=== PATIENT | female | born 1990 | race African-American/Black ===

== ENCOUNTER 2021-05-07 13:17 | Emergency (ER) | payer MEDICAID ==
[~2021-05-07] VITALS: Ht 157.5 cm; Wt 79.0 kg
[2021-05-07] MEDS ORDERED: IBUPROFEN 600MG TABLET PO STA (13:32)
[2021-05-07] MEDS ORDERED: ALBUTEROL 6.7GM HFA INHALER ORI ONE (13:45)
[2021-05-07] MEDS ORDERED: SODIUM CHLORIDE 0.9% 1000ML BAG (SEPSIS BOLUS) IV NR (15:30)
[2021-05-07] MEDS ORDERED: ACETAMINOPHEN 325MG TABLET PO NR (15:30)
[2021-05-07 16:00] VITALS: BP 138/91
[2021-05-07 16:25] LABS: BASOPHILS % 0.7 % (0.0-2.0); EOSINOPHILS % 2.8 % (0.0-5.0); HEMATOCRIT. 39.1 % (36.0-48.0); HEMOGLOBIN. 13.5 g/dL (12.0-16.0); LYMPHOCYTES % 22.6 % (20.0-50.0); MEAN CORPUSCULAR HEMOGLOBIN 30.1 pg (28.0-32.0); MEAN CORPUSCULAR VOLUME 87.3 fL (81.0-99.0); MEAN PLATELET VOLUME 10.8 fl (7.4-10.4); NEUTROPHILS % 65.9 % (40.0-76.0); PLATELET 314 x1000/uL (130-400); RED BLOOD CELL COUNT 4.49 mill/uL (4.2-5.4); RED CELL DISTRIBUTION WIDTH 13.1 % (11.6-14.6)
[2021-05-07 16:32] LABS: CHLORIDE 109 mEq/L (98-107)
[2021-05-07 16:43] LABS: HCG SCREEN NEGATIVE
[2021-05-07] MEDS ORDERED: BENZ-16 MT (17:24)
[2021-05-07] MEDS ORDERED: ACET-2708 MT (17:24)
[2021-05-07] MEDS ORDERED: ALBU6.7H9 INH (17:24)
[2021-05-07 18:32] LABS: CLARITY URINE CLOUDY (CLEAR); COLOR URINE YELLOW (YELLOW); KETONES URINE NEGATIVE (NEGATIVE); LEUKOCYTE ESTERASE URINE TRACE (NEGATIVE); NITRITE URINE NEGATIVE (NEGATIVE); OCCULT BLOOD URINE NEGATIVE (NEGATIVE); PROTEIN URINE NEGATIVE (NEGATIVE); SPECIFIC GRAVITY URINE 1.018 (1.005-1.030)
== END 2021-05-07 17:53 | disposition home or self-care (01) ==
LOC: ER 13:17
DX: B34.9 Viral infection, unspecified (principal); R05.9 Cough, unspecified; R06.2 Wheezing; R03.0 Elevated blood-pressure reading, without diagnosis of hypertension; Z86.16 Personal history of COVID-19; Z20.822 Contact with and (suspected) exposure to COVID-19
CPT/HCPCS: 36415; 71045; 80053; 81003; 83605; 84145; 84703; 85025; 87426; 93005; 96360; 96361; 99285

== ENCOUNTER 2021-05-20 14:37 | Emergency (ER) | payer MEDICAID ==
[~2021-05-20] VITALS: Ht 157.5 cm; Wt 78.6 kg
[~2021-05-20 14:37] MED LIST: ACET-2708 MT; ALBU6.7H9 INH; BENZ-16 MT
[2021-05-20] MEDS ORDERED: ASPIRIN 325MG EC TABLET PO ONE (16:45)
[2021-05-20] MEDS ORDERED: KETOROLAC 15MG/ML VIAL IV ONE (16:45)
[2021-05-20 17:00] LABS: BASOPHILS % 0.7 % (0.0-2.0); HEMATOCRIT. 41.2 % (36.0-48.0); LYMPHOCYTES % 24.8 % (20.0-50.0); MEAN CORPUSCULAR HEMOGLOBIN 29.7 pg (28.0-32.0); MEAN CORPUSCULAR VOLUME 87.3 fL (81.0-99.0); MEAN PLATELET VOLUME 10.4 fl (7.4-10.4); MONOCYTES % 8.2 % (2.0-8.0); NEUTROPHILS % 62.3 % (40.0-76.0); PLATELET 273 x1000/uL (130-400); RED BLOOD CELL COUNT 4.72 mill/uL (4.2-5.4); RED CELL DISTRIBUTION WIDTH 13.1 % (11.6-14.6)
[2021-05-20 17:07] LABS: CHLORIDE 109 mEq/L (98-107)
[2021-05-20 17:21] LABS: B-HCG QUANTITATIVE < 1 mIU/mL (<3)
[2021-05-20 17:35] VITALS: BP 130/76
== END 2021-05-20 19:04 | disposition home or self-care (01) ==
LOC: ER 14:37
DX: R07.89 Other chest pain (principal); Z20.822 Contact with and (suspected) exposure to COVID-19
CPT/HCPCS: 36415; 71045; 80053; 83880; 84484; 84702; 85025; 87426; 93005; 96374; 99285; J1885

== ENCOUNTER 2021-09-25 09:54 | Emergency (ER) | payer SELFPAY ==
[~2021-09-25] VITALS: Ht 157.5 cm; Wt 79.0 kg
[2021-09-25] MEDS ORDERED: MAGNESIUM/ALUMINUM HYDROXIDE/SIMETHICONE 30ML UDC PO STA (10:25)
[2021-09-25] MEDS ORDERED: DICYCLOMINE 10 MG/5 ML ORAL SYR PO STA (10:25)
[2021-09-25] MEDS ORDERED: FAMOTIDINE 20MG TABLET PO ONE (10:30)
[2021-09-25] MEDS ORDERED: DICY10CA88 MT (12:35)
[2021-09-25] MEDS ORDERED: FAMO-135 MT (12:35)
[2021-09-25] MEDS ORDERED: DICYCLOMINE 10 MG/5 ML ORAL SYR PO NR (14:15)
[2021-09-25] MEDS ORDERED: MAGNESIUM/ALUMINUM HYDROXIDE/SIMETHICONE 30ML UDC PO NR (14:15)
[2021-09-25] MEDS ORDERED: FAMOTIDINE 20MG TABLET PO NR (14:15)
[2021-09-25 14:55] VITALS: BP 122/78
== END 2021-09-25 15:00 | disposition home or self-care (01) ==
LOC: ER 09:54
DX: R07.9 Chest pain, unspecified (principal); K21.9 Gastro-esophageal reflux disease without esophagitis; I10 Essential (primary) hypertension; Z86.16 Personal history of COVID-19
CPT/HCPCS: 71045; 81025; 93005; 99284